=== PATIENT | female | born 1975 | race Caucasian/White ===

== ENCOUNTER → 2019-09-10 | Outpatient (CLI) | payer OTHER | END | disposition home or self-care (01) | LOC: BARWHC3 13:54 | PROVIDERS: ATTEND Surgery | DX: Z53.9 Procedure and treatment not carried out, unspecified reason (principal) ==

== ENCOUNTER → 2019-11-13 | Outpatient (CLI) | payer OTHER ==
[2019-11-13 14:48] VITALS: BP 115/66; PULSE 84; RESP 16; TEMP 97.9; BMI 34.2
--- NOTE | 2019-11-13 15:46 | P.HPBAR ---
Bariatric H&P - History & Physicial H&P Date: 11/13/19 History & Physicial: Visit/CC: band/sleeve to ry Consult Patient initial contact: Initial weight: 111.584 kg Initial weight in pounds: 246.00 Height: 5 ft 2 in Initial BMI: 44.9 Last weight: Current weight: 85.077 kg Current weight in pounds: 187.56 Current BMI: 34.2 [place] body weight (based on NIH guidelines): 49.895 kg Excess body weight loss: 42.9% The patient is a 44 year-old F who presents for Bariatric Assessment. HPI: She comes in with band to sleeve. Highest weight 256 pounds. Lowest weight 133 pounds. She comes in 188 pounds. Band first operation was between 2005 to 2007. She had panniculectomy then sleeve. She was switched from band to sleeve because of heart burn. She denies having reflux prior to her bariatric surgeries. NO stomach or esophageal cancer in the family. No Croh's or ulcerative colitis. No abdominal pain. She report dysphagia and food being stuck in the throat. She had tilted band requiring removal. Her heartburn grew worse after her sleeve no increased from Omeprazole once per day to twice per day. She has new insurance. She has troubles with fatty greasy foods. She has right upper quadrant pain, and right flank pain. PLAN: 1. Will need esophagram 2. Manometry 3. EGD 4. Full bariatric labs 5. Referral to see ENT for chronic sore throat. 6. Evaluation for conversion bypass. 7. US gallbladder/HIDA for cholecystitis Past Medical History Past Medical History: Fibromyalgia, GERD/Reflux, Rheumatoid Arthritis (RA) Additional Past Medical History / Comment(s): mark-Biggs History of Any Multi-Drug Resistant Organisms: None Reported Past Surgical History: Bariatric Surgery, Tubal Ligation Additional Past Surgical History / Comment(s): gastric sleeve 2011 (had lap band first), panniculectomy, right maniscus, rt hand carpal tunnel, old sutures removed from panniculecomy just this December Past Anesthesia/Blood Transfusion Reactions: Previous Problems w/ Anesthesia Additional Past Anesthesia/Blood Transfusion Reaction / Comm: doesn't come out of anasthesia well Past Psychological History: No Psychological Hx Reported Smoking Status: Never smoker Past Alcohol Use History: Rare Past Drug Use History: None Reported - Past Family History Mother Family Medical History: Rheumatoid Arthritis (RA) Father History Unknown: Yes Surgical - Exam Vital Signs Temp Pulse Resp BP 97.9 F 84 16 115/66 11/13/19 14:45 11/13/19 14:45 11/13/19 14:45 11/13/19 14:45 Bariatric Checklist Checklist: Plan: Checklist: EGD: 1. Hiatal hernia: 2. H. Pylori: HgbA1c: Vitamin D: Smoking: Never smoker Primary care physician referral: Sofie Psychiatry clearance: Cardiology clearance: Sleep study: Diet journal: VTE risk score: VTE risk level: Rehab needs at discharge:
[2019-11-13 17:33] LABS: HCT 41.6 % (34.0-46.0); HGB 13.5 gm/dL (11.4-16.0); MCH 32.8 pg (25.0-35.0); MCHC 32.4 g/dL (31.0-37.0); MCV 101.1 fL (80.0-100.0); Mean Platelet Volume 9.5; Platelet Count 210 k/uL (150-450); RBC 4.11 m/uL (3.80-5.40); RDW 13.1 % (11.5-15.5); WBC 8.1 k/uL (3.8-10.6)
[2019-11-13 17:42] LABS: INR 0.9 (<1.2); Partial Thromboplastin Time 22.7 sec (22.0-30.0); Prothrombin Time 9.6 sec (9.0-12.0)
[2019-11-14 00:40] LABS: Hemoglobin A1C 5.3 % (4.0-6.0)
[2019-11-14 02:01] LABS: % Iron Saturation 13.65 (12.00-45.00); African American GFR (CKD) 102.5 (60.0-200.0); Albumin 4.5 g/dL (3.80-4.90); Albumin/Globulin Ratio 1.88 (1.60-3.17); Anion Gap 12.6 mmol/L (4.00-12.00); BUN/Creat Ratio 27.5 Ratio (12.00-20.00); Carbon Dioxide 21.4 mmol/L (21.6-31.8); Chol/HDL Ratio 3.12; Globulin 2.4 g/dL (1.6-3.3); Magnesium 1.7 mg/dL (1.5-2.4); Non-African American GFR(CKD) 88.4 (60.0-200.0); Phosphorus 4.2 mg/dL (2.4-5.1); Potassium 4.1 mmol/L (3.5-5.5); Total Bilirubin 0.4 mg/dL (0.3-1.2); Total Protein 6.9 g/dL (6.2-8.2)
[2019-11-14 02:17] LABS: Ferritin 16.3 ng/mL (10.0-291.0); Folate, Serum 11.6 ng/mL
[2019-11-14 15:08] LABS: Zinc, Serum 61 ug/dL (60-130)
[2019-11-14 15:22] LABS: Vitamin A 43 ug/dL (38-106)
[2019-11-15 07:59] LABS: Vit B1(Thiamine) 63 ug/L (38-122)
== END | disposition home or self-care (01) ==
LOC: BARWHC3 14:18
PROVIDERS: ATTEND Surgery Plastic and Reconstructive Surgery
DX: Z48.815 Encounter for surgical aftercare following surgery on the digestive system (principal); R13.19 Other dysphagia; R12 Heartburn; R10.11 Right upper quadrant pain; Z98.890 Other specified postprocedural states; Z98.84 Bariatric surgery status; Z79.899 Other long term (current) drug therapy
CPT/HCPCS: 80053; 80061; 82306; 82525; 82607; 82728; 82746; 83036; 83540; 83550; 83735; 83970; 84100; 84134; 84255; 84425; 84443; 84590; 84630; 85027; 85610; 85730; 93005; 99211

== ENCOUNTER → 2020-02-03 | Outpatient (CLI) | payer OTHER ==
--- NOTE | 2020-02-03 09:41 | FL ---
EXAMINATION TYPE: FL barium swallow DATE OF EXAM: 02/03/2020 CLINICAL INDICATION: 44-year-old female with dysphagia, GERD symptoms, history of lap band with conve rsion to sleeve gastrectomy 7 years ago. Total fluoroscopy time: 1 minute 58seconds. Total images: 39 COMPARISON: None FINDINGS: The swallowing mechanism is normal and hypopharyngeal anatomy is preserved. The cervical and thoracic portions have a normal course and caliber. Mild tertiary peristaltic waves are demonstrated. The mucosa is normal and no persistent filling defect is encountered. There is a small hiatal hernia with a sliding component that enlarges to a moderate-sized hernia and severe gastroesophageal reflux with Valsalva maneuver up to the thoracic inlet. Postsurgical changes of sleeve gastrectomy. IMPRESSION: 1. Postsurgical changes of sleeve gastrectomy. 2. Small hiatal hernia with a sliding component that enlarges to a moderate sized hernia. Severe gas troesophageal reflux up to the thoracic inlet with Valsalva maneuver.
== END | disposition home or self-care (01) ==
LOC: RADUSWWP 08:32
PROVIDERS: ATTEND Surgery Plastic and Reconstructive Surgery
DX: K21.9 Gastro-esophageal reflux disease without esophagitis (principal); K44.9 Diaphragmatic hernia without obstruction or gangrene; Z98.890 Other specified postprocedural states
CPT/HCPCS: 74220

== ENCOUNTER → 2020-02-07 | Outpatient (CLI) | payer OTHER ==
--- NOTE | 2020-02-07 07:40 | US ---
EXAMINATION TYPE: US gallbladder DATE OF EXAM: 02/07/2020 COMPARISON: NONE CLINICAL HISTORY: R13.10 Dysphagia. Acid reflux, lap band sleeve 7 years ago EXAM MEASUREMENTS: Liver Length: 12.1 cm Gallbladder Wall: 0.2 cm CBD: 0.5 cm Right Kidney: 9.3 x 3.9 x 4.2cm Technical limitations due to large amount of overlying bowel content Pancreas: Obscured by bowel gas Liver: appears wnl as visualized Gallbladder: no evidence of stones Evidence for sonographic Carrillo's sign: no CBD: appears wnl Right Kidney: no evidence of hydronephrosis Pancreas suboptimally seen on the initial images secondary to shadowing from overlying bowel gas. Vis ualized liver is heterogeneously hyperechoic. No suspicious intrahepatic ductal dilatation. No surrou nding ascites. Right kidney shows no hydronephrosis. Gallbladder shows no shadowing mobile gallstones . Common bile duct measures upper limits of normal. IMPRESSION: Suboptimal study. No shadowing mobile gallstones or ultrasound evidence for acute cholecy stitis. Probable fatty infiltration of liver. Correlate clinically.
--- NOTE | 2020-02-07 10:02 | NM ---
EXAMINATION TYPE: NM hepatobiliary w EF DATE OF EXAM: 02/07/2020 COMPARISON: Same day gallbladder ultrasound HISTORY: Dysphagia per order. Epigastric and abdominal pain with nausea per patient. TECHNIQUE: After the intravenous administration of 4.2 mCi Tc 99m Mebrofenin hepatobiliary scintigrap hy is performed. Immediate images post injection. FINDINGS: There is satisfactory initial accumulation of tracer by the liver. The gallbladder is visualized wit hin 30 minutes. The small bowel activity is noted within 45 minutes. At one hour 8 ounces of oral e nsure plus is given to mimic CCK and gallbladder ejection fraction is calculated at 80 %, not deviate d from the normal range. Therefore there is no scintigraphic evidence of cystic or common bile duct obstruction to suggest acute cholecystitis . IMPRESSION: Ejection fraction is 80% and patient experienced some nausea upon drinking oral Ensure; s ome consider this abnormal or a hyperkinetic response.
== END | disposition home or self-care (01) ==
LOC: RADUSWWP 07:01
PROVIDERS: ATTEND Surgery Plastic and Reconstructive Surgery
DX: R13.10 Dysphagia, unspecified (principal); R11.0 Nausea
CPT/HCPCS: 76705; 78226; A9537

== ENCOUNTER 2020-02-27 07:09 | Day surgery (SDC) | payer OTHER ==
[2020-02-25 09:22] VITALS: BMI 35.5
[~2020-02-27 07:09] MED LIST: LACTATED RINGERS 1,000 ML IV SCH
[2020-02-27 07:32] VITALS: TEMP 98.4
[2020-02-27] MEDS ORDERED: LIDOCAINE 1% (10MG/ML) FOR IV START INTRADERMA ONE (07:46)
[2020-02-27] MEDS ORDERED: ONDANSETRON 4 MG/2 ML VIAL ONE (07:47)
[2020-02-27] MEDS ORDERED: ONDANSETRON 4 MG/2 ML VIAL IVP ONE (07:49)
--- NOTE | 2020-02-27 07:57 | P.GSHP ---
History of Present Illness H&P Date: 02/27/20 CHIEF COMPLAINT: GERD HISTORY OF PRESENT ILLNESS: The patient is a 44-year-old female who presents reports gastroesophageal reflux disease. Upper endoscopy was offered for further evaluation and management. PAST MEDICAL HISTORY: Please see list. PAST SURGICAL HISTORY: Please see list. MEDICATIONS: Please see list. ALLERGIES: Please see list. SOCIAL HISTORY: No illicit drug use FAMILY HISTORY: No reports of Crohn disease or ulcerative colitis. REVIEW OF ORGAN SYSTEMS: CONSTITUTIONAL: No reports of fevers or chills. GI: Denies any blood in stools or constipation. PHYSICAL EXAM: VITAL SIGNS: Stable GENERAL: Well-developed and pleasant in no acute distress. HEENT: No scleral icterus. Extraocular movements grossly intact. Moist buccal mucosa. NECK: Supple without lymphadenopathy. CHEST: Unlabored respirations. Equal bilateral excursions. CARDIOVASCULAR: Regular rate and rhythm. Distal 2+ pulses. ABDOMEN: Soft, nondistended. MUSCULOSKELETAL: No clubbing, cyanosis, or edema. ASSESSMENT: 1. Gastroesophageal reflux disease PLAN: 1. Recommend proceeding with an upper endoscopy Past Medical History Past Medical History: Fibromyalgia, GERD/Reflux, Rheumatoid Arthritis (RA) Additional Past Medical History / Comment(s): mark-Biggs History of Any Multi-Drug Resistant Organisms: None Reported Past Surgical History: Bariatric Surgery, Orthopedic Surgery, Tubal Ligation Additional Past Surgical History / Comment(s): gastric sleeve 2011 (had lap band first), panniculectomy, right meniscus, rt hand carpal tunnel, old sutures removed from panniculecomy just this December, RT ROTATOR CUFF REPAIR Past Anesthesia/Blood Transfusion Reactions: Previous Problems w/ Anesthesia Additional Past Anesthesia/Blood Transfusion Reaction / Comment(s): doesn't come out of anesthesia well Smoking Status: Never smoker - Past Family History Mother Family Medical History: No Reported History Father History Unknown: Yes Medications and Allergies Home Medications Medication Instructions Recorded Confirmed Type Omeprazole Magnesium [PriLOSEC OTC] 20 mg PO DAILY 02/10/20 02/27/20 History Allergies Allergy/AdvReac Type Severity Reaction Status Date / Time codeine Allergy Nausea & Verified 02/27/20 07:46 Vomiting hydrocodone [From Vicodin] Allergy Nausea & Verified 02/27/20 07:44 Vomiting latex Allergy Rash/Hives Verified 02/27/20 07:44 Surgical - Exam Vital Signs Temp Pulse Resp BP Pulse Ox 98.4 F 68 16 107/65 99 02/27/20 07:27 02/27/20 07:27 02/27/20 07:27 02/27/20 07:27 02/27/20 07:27
[2020-02-27] MEDS ORDERED: PROPOFOL 10 MG/ML 20 ML VIAL IV ONE (08:50)
--- NOTE | 2020-02-27 09:06 | P.PCN ---
Date of Procedure: 02/27/20 Description of Procedure: PREOPERATIVE DIAGNOSIS: Status post sleeve gastrectomy. Gastroesophageal reflux disease. Epigastric abdominal pain. POSTOPERATIVE DIAGNOSIS: Status post sleeve gastrectomy. Gastroesophageal reflux disease. Epigastric abdominal pain. Erosive esophagitis, chronic. Diaphragmatic hiatal hernia without obstruction. Chronic superficial gastritis. OPERATION: Esophagogastroduodenoscopy with cold forceps biopsies along the antrum. SURGEON: Marie Esposito MD ANESTHESIA: MAC. INDICATIONS: The patient is a 44-year-old female who presents with a history of sleeve gastrectomy with abdominal pain. She is several years out from her bariatric procedure. Benefits and risks of the procedure were described. Informed consent was obtained. DESCRIPTION: The patient was brought into the endoscopy suite and laid in the left lateral decubitus position. An Olympus gastroscope was passed along the posterior oropharynx down to the distal esophagus where the squamocolumnar junction was at 32 centimeters from the incisors unremarkable for chronic erosive esophagitis, LA grade A without ulceration. The stomach was entered where she had a 3-cm hiatal hernia with a diaphragmatic hiatus found at 35 cm. The sleeve reservoir of good caliber and without dilation. Chronic gastritis albeit mild was found along the antrum with cold biopsies obtained. The first through third portion of the duodenum was examined and unremarkable. The stomach was desufflated. The patient tolerated the procedure well. FINDINGS: No acute ulceration found along her sleeve. No corkscrewing sleeve gastrectomy. Mild stricture along the angularis incisura Squamocolumnar junction at 32 cm from the incisors. Diaphragmatic hiatus at 35 cm. Adequate size sleeve rubs or without dilation Hiatal hernia 3 cm, fixed. LA grade A erosive esophagitis. No active duodenitis. Chronic gastritis. RECOMMENDATIONS: Upper endoscopy as needed. May benefit from antireflux operation. Continue with current therapy. Plan - Discharge Summary Discharge Rx Participant: No New Discharge Prescriptions: Continue Omeprazole Magnesium [PriLOSEC OTC] 20 mg PO DAILY Discharge Medication List Omeprazole Magnesium [PriLOSEC OTC] 20 mg PO DAILY 02/10/20 [History] Follow up Appointment(s)/Referral(s): [place], [place] [NON-STAFF] - 03/11/20 Patient Instructions/Handouts: Hiatal Hernia (DC) Discharge Disposition: HOME SELF-CARE
[2020-02-27 09:30] VITALS: BP 96/59; PULSE 62; RESP 18
== END 2020-02-27 09:34 | disposition home or self-care (01) ==
LOC: ORWHC2ENDO 07:09
PROVIDERS: ATTEND Surgery Plastic and Reconstructive Surgery
DX: K29.30 Chronic superficial gastritis without bleeding (principal); K21.0 Gastro-esophageal reflux disease with esophagitis; K22.10 Ulcer of esophagus without bleeding; K44.9 Diaphragmatic hernia without obstruction or gangrene; M79.7 Fibromyalgia; M06.9 Rheumatoid arthritis, unspecified; E66.9 Obesity, unspecified; Z68.35 Body mass index [BMI] 35.0-35.9, adult; Z98.84 Bariatric surgery status; Z86.19 Personal history of other infectious and parasitic diseases; Z98.890 Other specified postprocedural states; Z98.51 Tubal ligation status; Z87.2 Personal history of diseases of the skin and subcutaneous tissue; Z87.39 Personal history of other diseases of the musculoskeletal system and connective tissue; Z86.69 Personal history of other diseases of the nervous system and sense organs; Z91.89 Other specified personal risk factors, not elsewhere classified; Z79.899 Other long term (current) drug therapy; Z88.5 Allergy status to narcotic agent; Z91.040 Latex allergy status
CPT/HCPCS: 81025; 88305; 43239; J2405; J2704

== ENCOUNTER 2020-04-13 07:30 | Day surgery (SDC) | payer OTHER ==
[2020-04-07 16:22] VITALS: BMI 35.5
--- NOTE | 2020-04-13 07:10 | P.GSHP ---
History of Present Illness H&P Date: 04/13/20 CHIEF COMPLAINT: Cholecystitis HISTORY OF PRESENT ILLNESS: The patient is a 44-year-old female who presents with history of epigastric including right upper quadrant abdominal pain. She underwent diagnostic studies for her gallbladder. Separately her clinical picture was consistent with cholecystitis. Now she presents for surgical intervention. PAST MEDICAL HISTORY: Please see list PAST SURGICAL HISTORY: Please see list MEDICATIONS: Please see list ALLERGIES: Please see list SOCIAL HISTORY: Please see list FAMILY HISTORY: Please see list REVIEW OF ORGAN SYSTEMS: CONSTITUTIONAL: No reports of fevers or chills. HEENT: Denies any troubles with the vision or hearing. ENDOCRINE: No reports of hypothyroidism. No diabetes. RESPIRATORY: No recent pneumonias. CARDIOVASCULAR: Denies chest pain or palpitations GI: No blood in stools or constipation. MUSCULOSKELETAL: Has occasional joint pain including back pain. NEURO: No seizure disorders or headaches. No recent stroke. PSYCH: No depression or suicidal ideation. GENITOURINARY: No active blood in urine. No urinary hesitancy. HEMATOLOGIC: No personal or family history of DVTs or pulmonary emboli. SKIN: No skin cancer. PHYSICAL EXAM: VITAL SIGNS: Afebrile vital signs stable GENERAL: Well-developed pleasant in no acute distress. HEENT: No scleral icterus. Extraocular movements grossly intact. Moist buccal mucosa. NECK: Supple without lymphadenopathy. CHEST: Unlabored respirations. Equal bilateral excursions. CARDIOVASCULAR: Regular rate regular rhythm rhythm. Distal 2+ pulses. ABDOMEN: Soft, nondistended. Tender along the epigastrium and right upper quadrant. MUSCULOSKELETAL: No clubbing, cyanosis, or edema. NEURO: Cranial nerves II to XII within normal limits. No focal or lateralizing signs. PSYCH: Alert and oriented to person, place and time. SKIN: Well-perfused good skin turgor. ASSESSMENT: 1. Epigastric and right upper quadrant abdominal pain 2. Chronic cholecystitis PLAN: 1. Will need a robotic cholecystectomy possible open. Benefits and risks were described. 2. Heparin for DVT prophylaxis 5000 units. 3. Antibiotic prophylaxis. Past Medical History Past Medical History: Fibromyalgia, GERD/Reflux, Rheumatoid Arthritis (RA) Additional Past Medical History / Comment(s): mark-Biggs. recent poison yoselin on legs tx with steroids History of Any Multi-Drug Resistant Organisms: None Reported Past Surgical History: Bariatric Surgery, Section, Hernia Repair, Orthopedic Surgery, Tubal Ligation Additional Past Surgical History / Comment(s): gastric sleeve 2011 (had lap band first), panniculectomy, right meniscus, rt hand carpal tunnel, old sutures removed from panniculecomy just this December, RT ROTATOR CUFF REPAIR Past Anesthesia/Blood Transfusion Reactions: Previous Problems w/ Anesthesia, Family History of Problems w/ Anesthesia, Motion Sickness, Postoperative Nausea & Vomiting (PONV) Additional Past Anesthesia/Blood Transfusion Reaction / Comment(s): doesn't come out of anesthesia well. brother ponv Smoking Status: Never smoker - Past Family History Mother Family Medical History: No Reported History Father History Unknown: Yes Medications and Allergies Home Medications Medication Instructions Recorded Confirmed Type Omeprazole Magnesium [PriLOSEC OTC] 20 mg PO DAILY 02/10/20 04/07/20 History Ferrous Sulfate [Feosol] 325 mg PO DAILY 04/07/20 04/07/20 History Allergies Allergy/AdvReac Type Severity Reaction Status Date / Time codeine Allergy Nausea & Verified 04/07/20 16:14 Vomiting hydrocodone [From Vicodin] Allergy Nausea & Verified 04/07/20 16:14 Vomiting latex Allergy Rash/Hives Verified 04/07/20 16:14
[~2020-04-13 07:30] MED LIST changes: +ACETAMINOPHEN TAB 500 MG TAB PO STA; +DEXAMETHASONE SOD PHOSPHATE 10 MG/ML 1 ML VIAL IV ONE; +GABAPENTIN 300 MG CAP PO STA; +HYDROmorphone 0.5 MG/0.5 ML SYRINGE IVP PRN; +INDOCYANINE GREEN 25 MG VIAL IV STA; +LIDOCAINE 1% (10MG/ML) FOR IV START INTRADERMA PRN; +MIDAZOLAM 2 MG/2 ML VIAL IV PRN; +SCOPOLAMINE 1.5MG/72HR PATCH TRANSDERM ONE; +SCOPOLAMINE 1.5MG/72HR PATCH TRANSDERM STA; +fentaNYL (PF) 50 MCG/ML 2 ML AMP IV PRN
[2020-04-13] MEDS ORDERED: ACETAMINOPHEN TAB 500 MG TAB ONE (08:12)
[2020-04-13] MEDS ORDERED: ONDANSETRON 4 MG/2 ML VIAL ONE (08:12)
[2020-04-13] MEDS ORDERED: HEPARIN SODIUM,PORCINE 5,000 UNIT/ML 1 ML VIAL ONE (08:12)
[2020-04-13] MEDS: ONDANSETRON 4 MG/2 ML VIAL IVP ONE ×2 (08:27→11:07)
[2020-04-13 09:26] LABS: Basophils % (A) 1 %; Eosinophils # (A) 0.1 k/uL (0-0.7); Eosinophils % (A) 3 %; HCT 40.3 % (34.0-46.0); HGB 13.1 gm/dL (11.4-16.0); Lymphocytes # (A) 1.9 k/uL (1.0-4.8); Lymphocytes % (A) 37 %; MCH 32.8 pg (25.0-35.0); MCHC 32.4 g/dL (31.0-37.0); MCV 101.1 fL (80.0-100.0); Macrocytosis Slight; Mean Platelet Volume 9.8; Monocytes # (A) 0.3 k/uL (0-1.0); Monocytes % (A) 5 %; Neutrophils # (A) 2.7 k/uL (1.3-7.7); Neutrophils % (A) 53 %; Platelet Count 197 k/uL (150-450); RBC 3.98 m/uL (3.80-5.40); RDW 13.5 % (11.5-15.5); WBC 5.1 k/uL (3.8-10.6)
[2020-04-13 09:40] LABS: ALT 19 U/L (4-34); African American GFR (CKD) >90 (>60 ml/min/1.73 sqM); Anion Gap 8 mmol/L; Blood Urea Nitrogen 18 mg/dL (7-17); Carbon Dioxide 24 mmol/L (22-30); Chloride 108 mmol/L (98-107); Glucose 84 mg/dL (74-99); Non-African American GFR(CKD) >90 (>60 ml/min/1.73 sqM); Sodium 140 mmol/L (137-145); Total Bilirubin 1.1 mg/dL (0.2-1.3)
[2020-04-13] MEDS ORDERED: NEOSTIGMINE 1 MG/ML 10 ML VIAL ONE (09:45)
[2020-04-13] MEDS ORDERED: MIDAZOLAM 2 MG/2 ML VIAL ONE (09:45)
[2020-04-13] MEDS ORDERED: GLYCOPYRROLATE 0.2 MG/ML 2 ML VIAL ONE (09:45)
[2020-04-13] MEDS ORDERED: INDOCYANINE GREEN 25 MG VIAL IV ONE (09:45)
[2020-04-13] MEDS ORDERED: LIDOCAINE 1% INJ 10MG/ML (20 ML MDV) ONE (09:45)
[2020-04-13] MEDS ORDERED: ROCURONIUM BROMIDE 10 MG/ML 5 ML VIAL IV ONE (09:45)
[2020-04-13] MEDS ORDERED: KETOROLAC 30 MG/ML 1 ML VIAL ONE (09:45)
[2020-04-13] MEDS ORDERED: fentaNYL (PF) 50 MCG/ML 2 ML AMP ONE (09:45)
[2020-04-13] MEDS ORDERED: PROPOFOL 10 MG/ML 20 ML VIAL IV ONE (09:45)
[2020-04-13] MEDS ORDERED: SUCCINYLCHOLINE CHLORIDE 100 MG/5 ML SYR IV ONE (09:45)
[2020-04-13 09:46] LABS: AST 46 U/L (14-36); Albumin 4.1 g/dL (3.5-5.0); Alkaline Phosphatase 76 U/L (38-126); Total Protein 7.3 g/dL (6.3-8.2)
[2020-04-13] MEDS ORDERED: HEPARIN SODIUM,PORCINE 5,000 UNIT/ML 1 ML VIAL SQ ONE (09:47)
[2020-04-13] MEDS ORDERED: LIDOCAINE 1%-EPI 1:100,000 20 ML VIAL SQ ONE (10:18)
[2020-04-13] MEDS ORDERED: SIMETHICONE 80 MG CHEWABLE PO SCH (11:00)
[2020-04-13] MEDS ORDERED: KETOROLAC 30 MG/ML 1 ML VIAL IVP PRN (11:00)
[2020-04-13 11:02] VITALS: TEMP 97.9
[2020-04-13] MEDS ORDERED: LACTATED RINGERS 1,000 ML IV ONE (11:29)
[2020-04-13] MEDS ORDERED: PROMETHAZINE INJ 25 MG/ML 1 ML VIAL IVPB ONE (11:32)
[2020-04-13 11:49] VITALS: RESP 16
[2020-04-13 12:24] VITALS: BP 96/59; PULSE 78
--- NOTE | 2020-04-13 13:18 | P.OP ---
Date of Procedure: 04/13/20 Description of Procedure: SURGEON: LINA SHANNON MD PREOPERATIVE DIAGNOSES: 1. Chronic cholecystitis 2. Epigastric and right upper quadrant abdominal pain 3. Gastroesophageal reflux disease 4. Iron deficiency 5. Obesity due to excess calories, BMI 34.9 6. History of sleeve gastrectomy POSTOPERATIVE DIAGNOSES: 1. Chronic cholecystitis 2. Epigastric and right upper quadrant abdominal pain 3. Gastroesophageal reflux disease 4. Iron deficiency 5. Obesity due to excess calories, BMI 34.9 6. History of sleeve gastrectomy OPERATION: Robotic-assisted da Breana Xi laparoscopic cholecystectomy, multiport with FIREFLY ESTIMATED BLOOD LOSS: 5 mL. SPECIMENS REMOVED: Gallbladder. COMPLICATIONS: None. OPERATIVE FINDINGS: 1. Chronic cholecystitis INDICATIONS: The patient is a 44-year-old female who presents with epigastric right upper quadrant dull pain with gallbladder disorder. Surgical intervention with a laparoscopic cholecystectomy was described. Robotic assisted laparoscopic approach was described. Benefits and risks of the procedure including but not limited to bleeding, infection, injury to the biliary tree was described. Informed consent was obtained. DESCRIPTION OF PROCEDURE: Patient was brought to the operating room, placed in supine position. After general induction, the abdomen had been prepped and draped in standard sterile fashion. The robotic da Breana XI system was primed. After a timeout protocol was performed, the patient had been prepped and draped in standard sterile fashion. The patient was injected with indocyanine green. A 5 mm 0 degrees laparoscopic trocar entry was performed along the left upper quadrant. The abdomen insufflated to 15 mmHg pressure which was tolerated well. Diagnostic laparoscopy demonstrated no injury to bowel viscera or mesentery. The liver surface was unremarkable. Next, two 8 mm robotic ports were placed along the right upper abdomen. The camera 8-mm port was maintained along the epigastrium. Another 8 mm port was placed along the left upper abdominal wall after exchanging the 5 mm port. Please note that the ports were placed at least 10 to 15 cm away from the target anatomy of the gallbladder. The robot was docked along the left lateral abdomen. The patient was repositioned in reverse Trendelenburg position. Using a grasper for arm 3, a grasper for arm 4, including hook cautery for arm 1, the robotic system was docked and primed as described. Instruments were interchanged by the sales assistant institutional sales including hook cautery, Bovie cautery and clip appliers. I had sat at the console. The gallbladder fundus was retracted over the dome of the liver. Initial attention was brought to the infundibulum including cystic lymph node. Initial dissection was performed over the cystic lymph node at the infundibulum using hook cautery. The infundibulum was retracted laterally to expose the cystic duct away from the common bile duct. The cystic duct including the cystic artery were dissected free from its surrounding tissue. FIREFLY was used to identify the cystic artery and cystic structures. A critical view of safety was obtained. Large PLASTIC clips were used throughout the entire case. Using a clip executive coach, 2 clips were placed at the junction of the infundibulum and cystic duct. The cystic duct was divided between clips. Next, the cystic artery was similarly clipped and cauterized. Electro-Bovie cautery was used to remove the gallbladder from the hepatic fossa. Hemostasis was checked and found to be adequate. The robot was undocked. I re-scrubbed into the case. Using a 10 mm Endo Catch bag via the left upper quadrant incision, the specimen was removed from the abdominal cavity. All pneumoperitoneum instruments were evacuated from the abdominal cavity. The incisions were reapproximated using 4-0 Monocryl in an interrupted subcuticular fashion. Fascial defects were less than 8 mm in size. Please note along the trocar sites, local anesthetic was placed as a field block prior to insertion of all instruments. Liquid glue was applied to the skin. At the end of the procedure needle, sponge, and instrument count had been verified correct by the bioinformatics technician. The patient was transferred to postanesthesia care unit in stable condition. Intraoperative films were shared with the patient's family who were pleased with the level of care. Plan - Discharge Summary Discharge Rx Participant: No New Discharge Prescriptions: New Ibuprofen [Motrin] 600 mg PO Q8HR PRN #30 tab PRN Reason: Pain Acetaminophen Tab [Tylenol Tab] 500 mg PO Q6H PRN #30 tablet PRN Reason: Pain Continue Omeprazole Magnesium [PriLOSEC OTC] 20 mg PO DAILY Ferrous Sulfate [Iron (65 MG Elemental)] 325 mg PO DAILY Discharge Medication List Omeprazole Magnesium [PriLOSEC OTC] 20 mg PO DAILY 02/10/20 [History] Ferrous Sulfate [Iron (65 MG Elemental)] 325 mg PO DAILY 04/07/20 [History] Acetaminophen Tab [Tylenol Tab] 500 mg PO Q6H PRN #30 tablet 04/13/20 [Rx] Ibuprofen [Motrin] 600 mg PO Q8HR PRN #30 tab 04/13/20 [Rx] Follow up [facility]ment[facility] [facility] [place] [place] [place] [facility]17[facility]20 10:15 am Patient Instructions/Handouts: *[facility] - Managing Your Pain After Surgery Without Opioids, *[facility] - (Anesthesia) Discharge Instructions Outpatient Surgery, *[facility] - Scopalamine Patch Instructions, Laparoscopic Cholecystectomy (DC) Activity/Diet/Wound Care/Special Instructions: No lifting over 10 pounds in 2 weeks until Apr 27January shower. No bath tub soaks for two weeks until Apr 27 Diet as tolerated. No driving while on narcotics. Use Tylenol and ibuprofen or Aleve scheduled for the next 24-48 hours for best pain relief. Use ice along incisions for the today to prevent swelling. Wear abdominal binder for comfort. For today, avoid high fat foods Discharge Disposition: HOME SELF-CARE
== END 2020-04-13 12:45 | disposition home or self-care (01) ==
LOC: OR 07:30
PROVIDERS: ATTEND Surgery Plastic and Reconstructive Surgery
DX: K81.1 Chronic cholecystitis (principal); K21.9 Gastro-esophageal reflux disease without esophagitis; E61.1 Iron deficiency; E66.09 Other obesity due to excess calories; M79.7 Fibromyalgia; M06.9 Rheumatoid arthritis, unspecified; Z68.34 Body mass index [BMI] 34.0-34.9, adult; Z98.84 Bariatric surgery status; Z91.040 Latex allergy status; Z88.5 Allergy status to narcotic agent; Z86.19 Personal history of other infectious and parasitic diseases; Z87.2 Personal history of diseases of the skin and subcutaneous tissue; Z98.890 Other specified postprocedural states; Z98.51 Tubal ligation status; Z87.39 Personal history of other diseases of the musculoskeletal system and connective tissue; Z86.69 Personal history of other diseases of the nervous system and sense organs; Z91.89 Other specified personal risk factors, not elsewhere classified; Z87.898 Personal history of other specified conditions; Z79.899 Other long term (current) drug therapy; Z84.89 Family history of other specified conditions
CPT/HCPCS: 47562; S2900; 80053; 81025; 85025; 88304

== ENCOUNTER → 2021-12-15 | Outpatient (CLI) | payer OTHER ==
[2021-12-15 15:42] VITALS: BP 120/83; PULSE 79; RESP 16; TEMP 98.1; BMI 33.9
--- NOTE | 2021-12-15 15:55 | P.HPBAR ---
Bariatric H&P - History & Physicial H&P Date: 12/15/21 History & Physicial: Visit/CC: sleeve f/u Patient initial contact: Initial weight: 111.584 kg Initial weight in pounds: 246.00 Height: 5 ft 2 in Initial BMI: 44.9 Last weight: Current weight: 84.051 kg Current weight in pounds: 185.30 Current BMI: 33.9 [place] body weight (based on NIH guidelines): 49.895 kg Excess body weight loss: 44.6% The patient is a 46 year-old F who presents for Bariatric Assessment. EGD, barium swallow. Heartburn following sleeve. CT abd/pelvis maybe. Needs labs and bariatric assessment. Past Medical History Past Medical History: Fibromyalgia, GERD/Reflux, Rheumatoid Arthritis (RA) Additional Past Medical History / Comment(s): mark-Biggs. recent poison yoselin on legs tx with steroids History of Any Multi-Drug Resistant Organisms: None Reported Past Surgical History: Bariatric Surgery, Section, Cholecystectomy, Hernia Repair, Orthopedic Surgery, Tubal Ligation Additional Past Surgical History / Comment(s): gastric sleeve 2011 (had lap band first), panniculectomy, right meniscus, rt hand carpal tunnel, old sutures removed from panniculecomy just this December, RT ROTATOR CUFF REPAIR Past Anesthesia/Blood Transfusion Reactions: Previous Problems w/ Anesthesia, Family History of Problems w/ Anesthesia, Motion Sickness, Postoperative Nausea & Vomiting (PONV) Additional Past Anesthesia/Blood Transfusion Reaction / Comm: doesn't come out of anesthesia well. brother ponv Past Psychological History: No Psychological Hx Reported Smoking Status: Never smoker Past Alcohol Use History: Rare Past Drug Use History: None Reported - Past Family History Mother Family Medical History: No Reported History Father History Unknown: Yes Surgical - Exam Vital Signs Temp Pulse Resp BP 98.1 F 79 16 120/83 12/15/21 15:39 12/15/21 15:39 12/15/21 15:39 12/15/21 15:39 Bariatric Checklist Checklist: Plan: Checklist: EGD: 1. Hiatal hernia: 2. H. Pylori: HgbA1c: Vitamin D: Smoking: Never smoker Primary care physician referral: Sofie Psychiatry clearance: Cardiology clearance: Sleep study: Diet journal: VTE risk score: VTE risk level: Rehab needs at discharge:
[2021-12-15 17:58] LABS: INR 0.9 (<1.2); Partial Thromboplastin Time 23.3 sec (22.0-30.0); Prothrombin Time 10.1 sec (9.0-12.0)
[2021-12-16 00:16] LABS: Chol/HDL Ratio 3.52 Ratio; LDL Cholesterol,Calculated 147.5 mg/dL (0.0-131.0); Prealbumin 19.6 mg/dL (18.0-42.0)
[2021-12-16 00:56] LABS: ALT 17 U/L (8-44); AST 20 U/L (13-35); African American GFR (CKD) 93.1 (60.0-200.0); Albumin 4.3 g/dL (3.8-4.9); Albumin/Globulin Ratio 1.87 (1.60-3.17); Alkaline Phosphatase 53 U/L (41-126); BUN/Creat Ratio 26.29 Ratio (12.00-20.00); Blood Urea Nitrogen 22.5 mg/dL (9.0-27.0); Calcium 9.4 mg/dL (8.7-10.3); Chloride 108 mmol/L (96-109); Ferritin 39.5 ng/mL (10.0-291.0); Globulin 2.3 g/dL (1.6-3.3); Glucose 92 mg/dL (70-110); Iron 70 ug/dL (50-170); Non-African American GFR(CKD) 80.3 (60.0-200.0); Phosphorus 3.8 mg/dL (2.4-5.1); Potassium 4.4 mmol/L (3.5-5.5); Sodium 142 mmol/L (135-145); Total Iron Binding Capacity 356 ug/dL (228-460); Total Protein 6.6 g/dL (6.2-8.2)
[2021-12-16 01:52] LABS: HGB 13.1 g/dL (12.0-15.0); MCH 32.3 pg (27.0-32.0); MCHC 32.8 g/dL (32.0-37.0); MCV 98.8 fL (80.0-97.0); Macrocytosis (M) 2+; Mean Platelet Volume 13.2 fL (9.5-12.2); NRBC Per 100 WBC 0 /100 WBCS (0.0-0.0); RBC 4.05 X 10*6/uL (4.10-5.20); WBC 6.49 X 10*3/uL (4.50-10.00)
[2021-12-16 12:45] LABS: Zinc, Serum 61 ug/dL (60-130)
[2021-12-17 08:14] LABS: Vit B1(Thiamine) 61 ug/L (38-122)
== END | disposition home or self-care (01) ==
LOC: BARWHC3 15:15
PROVIDERS: ATTEND Surgery Plastic and Reconstructive Surgery
DX: E66.01 Morbid (severe) obesity due to excess calories (principal); E89.1 Postprocedural hypoinsulinemia; D50.8 Other iron deficiency anemias; D50.9 Iron deficiency anemia, unspecified; K91.2 Postsurgical malabsorption, not elsewhere classified; E44.0 Moderate protein-calorie malnutrition; E44.1 Mild protein-calorie malnutrition; E55.9 Vitamin D deficiency, unspecified; N19 Unspecified kidney failure; T56.894A Toxic effect of other metals, undetermined, initial encounter; K50.90 Crohn's disease, unspecified, without complications
CPT/HCPCS: 80053; 80061; 82306; 82525; 82607; 82728; 82746; 83036; 83540; 83550; 83735; 83970; 84100; 84134; 84255; 84425; 84443; 84590; 84630; 85027; 85610; 85730; 93005; 99211

== ENCOUNTER → 2022-02-10 | Outpatient (CLI) | payer OTHER ==
[2022-02-10 14:55] LABS: Basophils # (A) 0.05 X 10*3/uL (0.00-0.10); Basophils % (A) 1.1 %; Eosinophils # (A) 0.08 X 10*3/uL (0.04-0.35); Eosinophils % (A) 1.8 %; HCT 42.4 % (37.2-46.3); HGB 13.6 g/dL (12.0-15.0); Immature Grans, Automated 0.2 %; Lymphocytes # (A) 1.51 X 10*3/uL (0.90-5.00); Lymphocytes % (A) 34.3 %; MCH 32.1 pg (27.0-32.0); MCHC 32.1 g/dL (32.0-37.0); Mean Platelet Volume 12.2 fL (9.5-12.2); Monocytes # (A) 0.39 X 10*3/uL (0.20-1.00); Monocytes % (A) 8.9 %; NRBC Per 100 WBC 0 /100 WBCS (0.0-0.0); Neutrophils # (A) 2.36 X 10*3/uL (1.80-7.70); Neutrophils % (A) 53.7 %; Platelet Count 184 X 10*3/uL (140-440); RBC 4.24 X 10*6/uL (4.10-5.20)
[2022-02-10 15:50] LABS: Albumin 4.5 g/dL (3.8-4.9); Albumin/Globulin Ratio 1.78 (1.60-3.17); Anion Gap 11.2 mmol/L (10.00-18.00); BUN/Creat Ratio 14.73 Ratio (12.00-20.00); Blood Urea Nitrogen 13.6 mg/dL (9.0-27.0); Calcium 9.8 mg/dL (8.7-10.3); Carbon Dioxide 23.8 mmol/L (20.0-27.5); Globulin 2.6 g/dL (1.6-3.3); Non-African American GFR(CKD) 73.3 (60.0-200.0); Total Bilirubin 0.5 mg/dL (0.30-1.20); Total Protein 7.1 g/dL (6.2-8.2)
== END | disposition home or self-care (01) ==
LOC: LABPAT 08:15
PROVIDERS: ATTEND Surgery Plastic and Reconstructive Surgery
DX: Z01.810 Encounter for preprocedural cardiovascular examination (principal)
CPT/HCPCS: 80053; 85025

== ENCOUNTER 2022-02-21 10:39 | Inpatient (IN) | payer OTHER ==
[2022-02-16 15:29] VITALS: BMI 34.0
--- NOTE | 2022-02-21 09:12 | P.GSHP ---
History of Present Illness H&P Date: 02/21/22 CHIEF COMPLAINT: Paraesophageal hiatal hernia with gastroesophageal reflux disease. HISTORY OF PRESENT ILLNESS: The patient is a 46-year-old female who presents with paraesophageal hiatal hernia. She has completed an upper endoscopy workup. Now she presents for surgical intervention. PAST MEDICAL HISTORY: Please see list. PAST SURGICAL HISTORY: Please see list. MEDICATIONS: Please see list. ALLERGIES: Please see list. SOCIAL HISTORY: No illicit drug use FAMILY HISTORY: No reports of Crohn disease or ulcerative colitis. REVIEW OF ORGAN SYSTEMS: CONSTITUTIONAL: No reports of fevers or chills. GI: Denies any blood in stools or constipation. PHYSICAL EXAM: VITAL SIGNS: Stable GENERAL: Well-developed pleasant and in no acute distress. HEENT: No scleral icterus. Extraocular movements grossly intact. Moist buccal mucosa. NECK: Supple without lymphadenopathy. CHEST: Unlabored respirations. Equal bilateral excursions. CARDIOVASCULAR: Regular rate and rhythm. Distal 2+ pulses. ABDOMEN: Soft, nondistended. No peritoneal signs. MUSCULOSKELETAL: No clubbing, cyanosis, or edema. SKIN: Well-perfused. Good skin turgor. STUDIES: Upper endoscopy demonstrated a large incarcerated hiatal hernia over 5 cm ASSESSMENT: 1. Diaphragmatic paraesophageal hiatal hernia with severe gastroesophageal reflux disease. PLAN: 1. Recommend proceeding with a robotic paraesophageal hiatal hernia with possible mesh. 2. Benefits and risks of surgical intervention was discussed including possibility of open technique. 3. Inpatient hospitalization recommended of 2 nights 4. DVT prophylaxis. 5. Antibiotic prophylaxis. 6. She has also completed a very low caloric high-protein diet to address underlying hepatomegaly. Past Medical History Past Medical History: Fibromyalgia, GERD/Reflux, Rheumatoid Arthritis (RA) Additional Past Medical History / Comment(s): Hx Roman-Biggs. History of Any Multi-Drug Resistant Organisms: None Reported Past Surgical History: Bariatric Surgery, Section, Cholecystectomy, Hernia Repair, Orthopedic Surgery, Tubal Ligation Additional Past Surgical History / Comment(s): Gastric Sleeve 2011 (had Lap Band first), panniculectomy, right meniscus repair, right hand carpal tunnel, old sutures removed from panniculecomy, right rotator cuff repair. Past Anesthesia/Blood Transfusion Reactions: Previous Problems w/ Anesthesia, Family History of Problems w/ Anesthesia, Motion Sickness, Postoperative Nausea & Vomiting (PONV) Additional Past Anesthesia/Blood Transfusion Reaction / Comment(s): "Doesn't come out of anesthesia well." Brother and Mother PONV. Past Psychological History: Anxiety, Depression Smoking Status: Never smoker Past Alcohol Use History: Rare Past Drug Use History: None Reported - Past Family History Mother Family Medical History: Cancer Additional Family Medical History / Comment(s): Kidney cancer. Father History Unknown: Yes Medications and Allergies Home Medications Medication Instructions Recorded Confirmed Type buPROPion [Wellbutrin] 75 mg PO QAM 01/06/22 02/16/22 History Allergies Allergy/AdvReac Type Severity Reaction Status Date / Time codeine Allergy Nausea & Verified 02/16/22 15:16 Vomiting hydrocodone [From Vicodin] Allergy Nausea & Verified 02/16/22 15:16 Vomiting latex Allergy Rash/Hives Verified 02/16/22 15:16
[~2022-02-21 10:39] MED LIST changes: +ACETAMINOPHEN TAB 500 MG TAB PO PRN; -ACETAMINOPHEN TAB 500 MG TAB PO STA; +CHLORHEXIDINE GLUCONATE 15 ML CUP MUCOUS MEM PRN; -DEXAMETHASONE SOD PHOSPHATE 10 MG/ML 1 ML VIAL IV ONE; +DEXAMETHASONE SOD PHOSPHATE 4 MG/ML 1 ML VIAL IV ONE; +ENOXAPARIN 40 MG/0.4 ML SYRINGE SQ PRN; +GABAPENTIN 300 MG CAP PO PRN; -GABAPENTIN 300 MG CAP PO STA; -HYDROmorphone 0.5 MG/0.5 ML SYRINGE IVP PRN; -INDOCYANINE GREEN 25 MG VIAL IV STA; -LACTATED RINGERS 1,000 ML IV SCH; -LIDOCAINE 1% (10MG/ML) FOR IV START INTRADERMA PRN; +ONDANSETRON 4 MG/2 ML VIAL IVP ONE; +PANTOPRAZOLE 40 MG/10 ML VIAL IVP PRN; +SCOPOLAMINE 1 MG/72 HR PATCH TRANSDERM ONE; +SCOPOLAMINE 1 MG/72 HR PATCH TRANSDERM PRN; -SCOPOLAMINE 1.5MG/72HR PATCH TRANSDERM ONE; -SCOPOLAMINE 1.5MG/72HR PATCH TRANSDERM STA
[2022-02-21] MEDS: LACTATED RINGERS 1,000 ML IV SCH (11:35)
[2022-02-21] MEDS ORDERED: SUCCINYLCHOLINE CHLORIDE 100 MG/5 ML SYR IV ONE (12:45)
[2022-02-21] MEDS ORDERED: MIDAZOLAM 2 MG/2 ML VIAL ONE (12:45)
[2022-02-21] MEDS ORDERED: LIDOCAINE 2% INJ 20 MG/ML (2 ML VIAL) ONE (12:45)
[2022-02-21] MEDS ORDERED: ROCURONIUM 10 MG/ML (5 ML VIAL) IV ONE (12:45)
[2022-02-21] MEDS ORDERED: fentaNYL (PF) 50 MCG/ML 2 ML AMP ONE (12:45)
[2022-02-21] MEDS ORDERED: PROPOFOL 10 MG/ML 20 ML VIAL IV ONE (12:45)
[2022-02-21] MEDS ORDERED: KETOROLAC 15 MG/ML 1 ML VIAL ONE (12:45)
[2022-02-21] MEDS ORDERED: GLYCOPYRROLATE 0.2 MG/ML 2 ML VIAL ONE (12:45)
[2022-02-21] MEDS ORDERED: NEOSTIGMINE 1 MG/ML 10 ML VIAL ONE (12:45)
[2022-02-21] MEDS ORDERED: BUPIVACAIN-EPI 0.25%-1:200,000 30 ML VIAL SQ ONE (13:38)
[2022-02-21] MEDS ORDERED: NALOXONE 0.4 MG/ML 1 ML VIAL IV PRN (14:40)
[2022-02-21] MEDS ORDERED: fentaNYL PCA 500 MCG/50 ML BAG IV PRN (14:40)
[2022-02-21] MEDS ORDERED: D5-0.45% NACL WITH KCL 20MEQ/L 1,000 ML IV SCH (14:45)
--- NOTE | 2022-02-21 14:49 | P.OP ---
Date of Procedure: 02/21/22 Description of Procedure: SURGEON: LINA SHANNON MD PREOPERATIVE DIAGNOSES: 1. Gastroesophageal reflux disease, with erosive esophagitis 2. Paraesophageal hiatal hernia, midline, recurrent 3. Morbid obesity due to excess calories, BMI of 34.1 4. History of sleeve gastrectomy 5. Epigastric abdominal pain. 6. Complications from sleeve gastrectomy. 7. Dysphagia POSTOPERATIVE DIAGNOSES: 1. Gastroesophageal reflux disease, with erosive esophagitis 2. Paraesophageal hiatal hernia, midline, recurrent with incarceration, 3 x 5 cm, type III 3. Morbid obesity due to excess calories, BMI of 34.1 4. History of sleeve gastrectomy 5. Epigastric abdominal pain. 6. Complications from sleeve gastrectomy. 7. Dysphagia OPERATION: 1. Robotic-assisted da Breana Xi laparoscopic reduction and repair of recurrent incarcerated paraesophageal hiatal hernia, 7 x 4 cm, with [place] Biopatch A 8 x 8 cm. 2. Intraoperative esophagogastroscopy ANESTHESIA: General with local anesthetic. ESTIMATED BLOOD LOSS: 5 mL Pathology: None COMPLICATIONS: None. FINDINGS: 1. Incarcerated upper pole of the stomach within the mediastinum with moderate dissection performed with incision of mediastinal hernia sac, type III paraesophageal hiatal hernia 2. 5 cm paraesophageal incarcerated diaphragmatic hiatal hernia with moderate dissection into the mediastinum 3. [place] Biopatch A onlay mesh placed. 4. Identified previous hiatal hernia repair with retained suture consistent with recurrent incarcerated hiatal hernia 5. Reduction of incarcerated 7 cm superior pole of stomach from previously gastrectomy 6. GE junction at 35 cm from the incisors 7. Intra-abdominal esophageal length over 1 cm obtained INDICATIONS: The patient is a 46-year-old female who presents with epigastric abdominal pain, dysphagia, history of sleeve gastrectomy, gastroesophageal reflux recalcitrant to medical therapy with a symptomatic diaphragmatic hiatal hernia. Preoperative workup including upper endoscopy demonstrated hiatal hernia with erosive esophagitis. She completed manometry demonstrating ine ffective esophageal motility including hypertensive upper esophageal sphincter. Given the severity of her symptoms, she had elected for surgical intervention. Benefits and risks including bleeding, infection, recurrence, dysphagia, injury to the lung, need for further surgery was described at length. Informed consent was obtained. DESCRIPTION: The patient was brought into the operating room and placed in supine position. Preoperatively she had received heparin subcutaneously for DVT prophylaxis. After general induction, the abdomen was prepped and draped in standard sterile fashion. The patient had previously voided prior to coming to the operating room. Ioban draping was placed along the abdomen. A timeout protocol was confirmed with the surgical team, for which the patient's name, procedure to be performed including DVT prophylaxis with bilateral SCDs, and preoperative antibiotics were also confirmed. A robotic da Breana Xi system was prepped and primed. At 15 cm from the xiphoid to just below the umbilicus, proposed port sites were marked with indelible marker along the left axillary line, left mid-clavicular line with each ports were marked 10 cm from each other. A 5 mm 0 degrees laparoscopic trocar entry was performed along the left upper quadrant. The abdomen was insufflated to 15 mmHg pressure was tolerated well. Diagnostic laparoscopy demonstrated no injury to bowel, viscera. No additional adhesions were found along the liver or the sleeve gastrectomy to the liver. Next, one 8 mm robotic port was placed along the right upper abdomen. An 8-mm po rt was were placed along the left lateral abdominal wall. The camera 8-mm port was maintained along the epigastrium. Another 12 mm port was placed along the left upper abdominal wall after exchanging the 5 mm port. Please note that the ports were placed at least 20 cm away from the target anatomy. Care was taken to check that each robotic arm were safely away from collision with the bed or the patient. The patient was repositioned in reverse Trendelenburg position at 21-degrees after lowering the bed. The robot was docked above the left side of the patient. Using a grasper for arm 3, a grasper for arm 1, including vessel sealer for arm 2, the robotic system was docked and primed as described. Instruments were interchanged by the speech language pathology assistant. I had sat at the console. Initial attention was brought to hiatus. Circumferentially the dissection at the hiatus was performed using vessel sealer including blunt dissection. Previous retained suture was found along the hiatus consistent with a prior repair. The hiatus hernia recurred anteriorly including a retained sac acting as a lead point for recurrence. The remnant gastrohepatic ligament was cleaved using a vessel sealer. Next, the phrenoesophageal ligament was mobilized and the distal esophagus was mobilized circumferentially. An incarcerated hernia sac was found into the mediastinum. As a result, deep dissection well into the mediastinum was needed to free the proximal sleeve gastrectomy including the mid to distal esophagus with retained gastric fundus consistent with a type III hiatal hernia. The left and right crura was identified. Significant mobilization of the distal to mid esophagus into the mediastinum was performed. Circumferentially, the hernia sac was incised and brought into the abdominal cavity. Care was taken to avoid any gastrotomy to the incarcerated upper pole of the stomach. The measured defect was measured with a ruler consistent with 5 cm axial length and 3 cm in width. After extensive dissection, the distal esophagus at least 1 cm was brought into the abdominal cavity. Once the hiatus and crura was dissected, 2-0 VLOC nonabsorbable suture was placed as a running suture to re-approximate the diaphragmatic hiatus posteriorly. To buttress the repair, a [place] Biopatch A was prepared along the back table and cut in a half vazquez-hole fashion as to reinforce the repair as an underlay. The mesh was resized posteriorly placed along the crural repair and tagged using 2- 0 VLOC. I went to the head of the bed to perform intraoperative esophagogastroduodenoscopy. An Olympus gastroscope was passed through posterior oropharynx, where the squamocolumnar junction was confirmed at 35 cm from the incisors. The hiatus repair was confirmed from the incisors. The stomach was entered. The stomach had been desufflated. No evidence of leaks were found or mucosal defects of the esophagus or stomach. This concluded the endoscopic portion of the case. The robot was undocked from the patient. I re-scrubbed into the case. All instruments and pneumoperitoneum were evacuated from the abdominal cavity. The incisions were cleansed with dilute hydrogen peroxide with saline solution. Incisions were reapproximated using 4-0 Monocryl in an interrupted subcuticular fashion. The 12-mm port site fascial defect was less than 8 mm in size. Exofin was applied to the skin. Local anesthetic was infiltrated in all wounds for postop analgesia. Multiple intra-abdominal films were obtained. At the end of the procedure, needle, sponge, and instrument count was verified correct by the rn surgical. The patient had tolerated the procedure well and was taken to the postanesthesia unit in stable condition. Intraoperative films were reviewed with the patient's family who were pleased with the level of care.
[2022-02-21] MEDS ORDERED: LACTATED RINGERS 1,000 ML IV ONE (15:27)
[2022-02-21 16:22] LABS: Basophils % (A) 1 %; Eosinophils % (A) 0 %; HGB 13.1 gm/dL (11.4-16.0); Lymphocytes # (A) 0.6 k/uL (1.0-4.8); Lymphocytes % (A) 10 %; MCH 33.7 pg (25.0-35.0); MCHC 32.8 g/dL (31.0-37.0); MCV 102.5 fL (80.0-100.0); Macrocytosis Slight; Mean Platelet Volume 9.3; Monocytes # (A) 0.1 k/uL (0-1.0); Monocytes % (A) 1 %; Neutrophils # (A) 5.2 k/uL (1.3-7.7); Neutrophils % (A) 88 %; Platelet Count 182 k/uL (150-450); RDW 13.4 % (11.5-15.5); WBC 5.9 k/uL (3.8-10.6)
[2022-02-21] MEDS: SODIUM CHLORIDE 0.9% 1,000 ML IV SCH (16:30)
[2022-02-21] MEDS: HYOSCYAMINE ORAL DROPS 1.875 MG/15 ML BOTTLE PO SCH ×2 (17:15→23:41)
[2022-02-21] MEDS: METOCLOPRAMIDE 5 MG/ML 2 ML VIAL IVP SCH ×2 (17:18→23:40)
[2022-02-21] MEDS: KETOROLAC 15 MG/ML 1 ML VIAL IVP SCH (17:18)
[2022-02-21] MEDS: ACETAMINOPHEN IV (For NPO) 1,000 MG in EMPTY BAG 1 BAG IVPB SCH (18:05)
[2022-02-21] MEDS: ONDANSETRON 4 MG/2 ML VIAL IVP SCH ×2 (18:05→23:40)
[2022-02-21] MEDS: SIMETHICONE 40 MG/0.6 ML DROPS 2,000 MG/30 ML BOTTLE PO SCH ×2 (18:05→23:40)
[2022-02-21] MEDS: PANTOPRAZOLE 40 MG/10 ML VIAL IV SCH (21:18)
[2022-02-22] MEDS: ACETAMINOPHEN IV (For NPO) 1,000 MG in EMPTY BAG 1 BAG IVPB SCH ×3 (00:13→12:09)
[2022-02-22] MEDS: KETOROLAC 15 MG/ML 1 ML VIAL IVP SCH ×3 (00:14→12:13)
[2022-02-22] MEDS: METOCLOPRAMIDE 5 MG/ML 2 ML VIAL IVP SCH ×2 (05:46→12:13)
[2022-02-22] MEDS: ONDANSETRON 4 MG/2 ML VIAL IVP SCH ×2 (05:46→12:13)
[2022-02-22] MEDS: SODIUM CHLORIDE 0.9% 1,000 ML IV SCH (05:47)
[2022-02-22] MEDS: SIMETHICONE 40 MG/0.6 ML DROPS 2,000 MG/30 ML BOTTLE PO SCH ×2 (05:47→12:15)
[2022-02-22] MEDS: HYOSCYAMINE ORAL DROPS 1.875 MG/15 ML BOTTLE PO SCH ×2 (05:47→12:13)
[2022-02-22 06:40] LABS: Magnesium 1.7 mg/dL (1.6-2.3); Phosphorus 4.7 mg/dL (2.5-4.5)
[2022-02-22] MEDS: PANTOPRAZOLE 40 MG/10 ML VIAL IV SCH (07:12)
[2022-02-22] MEDS: LACTATED RINGERS 1,000 ML IV SCH (08:50)
--- NOTE | 2022-02-22 08:57 | FL ---
EXAMINATION TYPE: FL esophagus cervic/pharynx DATE OF EXAM: 02/22/2022 HISTORY: Rule out leak/obstruction post-hiatal hernia repair COMPARISON: Barium swallow dated 01/20/2022 TECHNIQUE: A limited single contrast esophagram is performed utilizing 50 mL of Isovue-370. A total of 45 seconds of fluoroscopic time was utilized during procedure and 24-hour spot images obtained. FINDINGS: Small amount of free air under the diaphragm, likely related to acute postoperative changes. The esophagus shows tortuosity in its distal aspect with moderate tertiary contractions. No evidence of obstruction or delay, with normal emptying into the stomach. No evidence of leak at the operative bed. Suspected changes of previous sleeve gastrectomy. IMPRESSION: No evidence of postoperative leak or obstruction.
[2022-02-22] MEDS ORDERED: ENOXAPARIN 30 MG/0.3 ML SYRINGE SQ SCH (09:00)
[2022-02-22 09:42] LABS: Basophils # (A) 0.03 X 10*3/uL (0.00-0.10); Basophils % (A) 0.4 %; Eosinophils # (A) 0.01 X 10*3/uL (0.04-0.35); Eosinophils % (A) 0.1 %; HCT 35.3 % (37.2-46.3); HGB 11.6 g/dL (12.0-15.0); Immature Grans, Automated 0.3 %; Lymphocytes # (A) 1.58 X 10*3/uL (0.90-5.00); Lymphocytes % (A) 20.3 %; MCH 32.2 pg (27.0-32.0); MCHC 32.9 g/dL (32.0-37.0); MCV 98.1 fL (80.0-97.0); Mean Platelet Volume 12.3 fL (9.5-12.2); Monocytes # (A) 0.56 X 10*3/uL (0.20-1.00); Monocytes % (A) 7.2 %; NRBC Per 100 WBC 0 /100 WBCS (0.0-0.0); Neutrophils # (A) 5.59 X 10*3/uL (1.80-7.70); Neutrophils % (A) 71.7 %; Platelet Count 172 X 10*3/uL (140-440); WBC 7.79 X 10*3/uL (4.50-10.00)
[2022-02-22] MEDS ORDERED: ACETAMINOPHEN TAB 500 MG TAB PO PRN (12:59)
--- NOTE | 2022-02-22 13:03 | P.DS ---
Providers Date of admission: 02/21/22 10:39 Expected date of discharge: 02/22/22 Attending physician: Marie Esposito Primary care physician: JAYLYN Mcgowan Hospital Course: Discharge diagnosis 1. Gastroesophageal reflux disease, with erosive esophagitis 2. Paraesophageal hiatal hernia, midline, recurrent with incarceration, 3 x 5 cm, type III 3. Morbid obesity due to excess calories, BMI of 34.1 4. History of sleeve gastrectomy 5. Epigastric abdominal pain. 6. Complications from sleeve gastrectomy. 7. Dysphagia Hospital course The patient is a 46-year-old female who presents with epigastric abdominal pain, dysphagia, history of sleeve gastrectomy, gastroesophageal reflux recalcitrant to medical therapy with a symptomatic diaphragmatic hiatal hernia. Patient is status post Robotic-assisted da Breana Xi laparoscopic reduction and repair of recurrent incarcerated paraesophageal hiatal hernia with [place] biopatch. Patient's upper GI shows no evidence of postoperative leak or obstruction. Patient is tolerating the Alexandru clear liquid diet. She is afebrile. She is up and ambulating. She's having flatus. Her pain is controlled. She is stable for discharge. Physician Pile Driver Operator note has been reviewed by physician. Signing provider agrees with the documented findings, assessment, and plan of care. Patient Condition at Discharge: Stable Plan - Discharge Summary Discharge Rx Participant: No New Discharge Prescriptions: New Acetaminophen Tab [Tylenol] 1,000 mg PO Q6HR PRN #30 tablet PRN Reason: Pain Hyoscyamine Oral Drops [Levsin Drops] 0.125 mg PO Q6HR ml Simethicone 40 mg/0.6 ml Drops [Mylicon Drops] 40 mg PO Q6HR ml Continue buPROPion [Wellbutrin] 75 mg PO QAM Discharge Medication List buPROPion [Wellbutrin] 75 mg PO QAM 01/06/22 [History] Acetaminophen Tab [Tylenol] 1,000 mg PO Q6HR PRN #30 tablet 02/22/22 [Rx] Hyoscyamine Oral Drops [Levsin Drops] 0.125 mg PO Q6HR ml 02/22/22 [Rx] Simethicone 40 mg/0.6 ml Drops [Mylicon Drops] 40 mg PO Q6HR ml 02/22/22 [Rx] Follow up Appointment(s)/Referral(s): Marie Esposito MD [STAFF PHYSICIAN] - 03/01/22 Activity/Diet/Wound Care/Special Instructions: Wear abdominal binder at all times for comfort. No lifting over 4 pounds in 4 weeks You May shower. No bath tub soaks for two weeks Use Tylenol scheduled for the next 24-48 hours for best pain relief. Use ice along incisions for the today to prevent swelling. No straws or carbonated beverages Discharge Disposition: HOME SELF-CARE
[2022-02-22 13:23] VITALS: BP 99/67; PULSE 77; RESP 16; TEMP 97.2
[2022-02-23] MEDS ORDERED: bisacodyL 5 MG TABLET.DR PO PRN (08:00)
== END 2022-02-22 15:07 | disposition home or self-care (01) | DRG 327 ==
LOC: 2ORMAIN 10:39 → 5NMEDONC 15:38
PROVIDERS: ADMIT Surgery Plastic and Reconstructive Surgery; ATTEND Surgery Plastic and Reconstructive Surgery
PROC: 8E0W4CZ Robotic Assisted Procedure of Trunk Region, Percutaneous Endoscopic Approach (ICD-10-PCS; 2022-02-21)
PROC: 0DJ68ZZ Inspection of Stomach, Via Natural or Artificial Opening Endoscopic (ICD-10-PCS; 2022-02-21)
PROC: 0CJY8ZZ Inspection of Mouth and Throat, Via Natural or Artificial Opening Endoscopic (ICD-10-PCS; 2022-02-21)
PROC: 0CJS8ZZ Inspection of Larynx, Via Natural or Artificial Opening Endoscopic (ICD-10-PCS; 2022-02-21)
PROC: 0BUT4JZ Supplement Diaphragm with Synthetic Substitute, Percutaneous Endoscopic Approach (ICD-10-PCS; principal; 2022-02-21 12:45)
DX: K95.89 Other complications of other bariatric procedure (principal); K22.10 Ulcer of esophagus without bleeding; K44.9 Diaphragmatic hernia without obstruction or gangrene; K21.00 Gastro-esophageal reflux disease with esophagitis, without bleeding; E66.01 Morbid (severe) obesity due to excess calories; F32.A Depression, unspecified; F41.9 Anxiety disorder, unspecified; K21.9 Gastro-esophageal reflux disease without esophagitis; R13.10 Dysphagia, unspecified; M06.9 Rheumatoid arthritis, unspecified; M79.7 Fibromyalgia; Z68.34 Body mass index [BMI] 34.0-34.9, adult; Z80.51 Family history of malignant neoplasm of kidney; Z98.84 Bariatric surgery status; Z88.5 Allergy status to narcotic agent; Z91.040 Latex allergy status
CPT/HCPCS: 74210; 83735; 84100; 85025; 86850; 86900; 86901